=== PATIENT | male | born 1940 | race African-American/Black ===

== ENCOUNTER 2017-02-25 11:08 | Observation (INO) | payer OTHER ==
--- NOTE | 2017-02-25 11:16 | DR.GENAD ---
HPI - PCP Primary Care Physician: JOSE - HPI Comment HPI Comment: IN ED WITH PATIENT. SHE SAID HE IS BEING CONFUSE FOR SOME TIME NOW. - Complaint/Symptoms Chief Complaint Doctors Comments: AMS AND TRYING TO TURN STOVE ON AND PUSH HIS . HERE FOR MEDICAL CLEARANCE TO GO TO [facility]. NO FEVER. Chief Complaint:: EMS STATED THAT THEY WERE SENT OUT TO PICK PT. UP THAT HAS AMS. SRIKANTH WILLI WITH [facility] AT THE HOME SPEAKING WITH FAMILY. PATIENT IS BE ACCEPTED AT THE [facility]. - Nurses notes reviewed Nurses Notes Review: Yes - Source History Provided: Family Member, EMS - Mode of Arrival Mode of Arrival: EMS - Timing Onset of Chief Complaint: 02/25/17 Came on: Gradually - Duration Duration: Constant Duration: Days - Severity Severity: Moderate PMH - PMH Past Medical History: Yes Past Medical History: Arthritis, Coronary Artery Disease, Dementia, Diabetes, Dyslipidemia, Hypertension, Hypothyroidism Past Surgical History: Yes Surgical History: Bowel Resection - Family History History of Family Medical Conditions: Yes Family Medical History: Diabetes Mellitus, Coronary Artery Disease, Hypertension - Social History Does any household member use tobacco: No Alcohol Use: None Do you use any recreational Drugs:: No Lives With: Family Lives Where: Home - infectious screening In the last 2 months have you had wt loss of >10#?: NO Have you had fever, night sweats or hemotysis?: No Have you traveled outside the country in the last 6 months?: No Isolation: Standard ROS - Review of Systems Constitutional: Weakness, Fatigue, Loss of Appetite Eyes: No Symptoms Reported. negative: Eye Pain, Discharge ENTM: negative: Nose Discharge, Nose Congestion, Throat Pain Respiratoy: negative: Productive Cough, Short of Breath, Wheezing, Hemoptysis Cardiovascular: negative: Chest Pain, Edema Gastrointestinal/Abdominal: No Symptoms Reported. negative: Abdominal Pain, Nausea, Vomiting Genitourinary: Other (INCONTINENCE) Neurological: Weakness, Problems Walking Musculoskeletal: Back Pain Integumentary: No Symptoms Reported Endocrine: Decreased Appetite. negative: Flushing All Other Systems: Reviewed and Negative Unable to Obtain Due To: Altered mental status PE - Vital Signs Vitals: Temperature 98.8 F Pulse Rate 89 Respiratory Rate 20 Blood Pressure [Right Arm] 117/82 Blood Pressure [Left Arm] 144/67 Blood Pressure [Left Calf] 137/74 Blood Pressure 137/71 O2 Sat by Pulse Oximetry 99 - General Limitations: Altered Mental Status General Appearance: Alert - Head Head Exam: Normal Inspection - Eyes Eye exam: Normal Appearance - ENT ENT Exam: Normal External Ear Exam External Ear Exam: Normal External Inspection TM/Canal Exam: Bilateral Normal Nose Exam: Normal Nose Exam Mouth Exam: Normal Inspection Throat Exam: Normal Inspection - Neck Neck Exam: Trachea Midline - Respiratory Respiratory Exam: Normal Lung Sounds Bilat Respiratory Exam: Bilateral Clear to Auscultation - Cardiovascular Cardiovascular Exam: Regular Rate, Normal Rhythm, Normal Heart Sounds - Abdominal Exam Abdominal Exam: Normal Bowel Sounds, Soft. negative: Tenderness - Extremities Extremities Exam: Normal Inspection - Back Back Exam: Normal Inspection - Neurologic Neurological Exam: Alert - Skin Skin Exam: Normal Color MDM - Additional Information Additional Information Obtained From: Family - Differential Diagnosis Differential Diagnosis: MEDICAL CLEARANCE, CONFUSION, BEHAVIOURAL DISORDER, AMS Course - Treatment Treatment: SEE ORDERS. [facility] WILL HAVE BED FOR PATIENT TOMORROW. HE WILL BE HERE IN HOSPITAL FOR OBS. - Consultation Consultation Comments: DISCUSS PATIENT WITH DR. WHITE. WANT PATIENT 10 13 AND TRANFER TO [facility]. HE WILL ADMIT HIM FOR OBS TILL BED IS AVAILABLE. - Education/Counseling Education/Counseling: Patient, Family Educated On: Diagnosis ROR - Labs Reviewed Laboratory Results Reviewed?: Yes Result Diagrams: 02/25/17 11:45 02/25/17 11:45 Laboratory: WBC 2.5 X10^3/uL (3.6-10.0) L 02/25/17 11:45 RBC 4.53 X10^6/uL (4.7-6.0) L 02/25/17 11:45 Hgb 14.0 g/dL (13.5-18.0) 02/25/17 11:45 Hct 42.1 % (42.0-54.0) 02/25/17 11:45 MCV 92.9 fL (80.0-100.0) 02/25/17 11:45 MCH 30.8 pg (27.0-34.0) 02/25/17 11:45 MCHC 33.2 g/dL (33.0-35.0) 02/25/17 11:45 RDW 14.3 % (11.6-16.5) 02/25/17 11:45 Plt Count 117 X10^3/uL (150.0-450.0) L 02/25/17 11:45 MPV 8.0 fL (7.4-11.0) 02/25/17 11:45 Neut % 50.8 % (42.0-75.0) 02/25/17 11:45 Lymph % 39.3 % (21.0-51.0) 02/25/17 11:45 [place] % 9.5 % (0.0-13.0) 02/25/17 11:45 Eos % 0.1 % (0.9-2.9) L 02/25/17 11:45 Baso % 0.3 % (0.2-1.0) 02/25/17 11:45 Neut # 1.3 x10^3/uL (2.2-4.8) L 02/25/17 11:45 Lymph # 1.0 X10^3/uL (1.3-2.9) L 02/25/17 11:45 [place] # 0.2 x10^3/uL (0.3-0.8) L 02/25/17 11:45 Eos # 0.0 x10^3/uL (0.0-0.2) 02/25/17 11:45 Baso # 0.0 X10^3/uL (0.0-0.1) 02/25/17 11:45 Absolute Nucleated RBC 0.2 /100WBC 02/25/17 11:45 INR Target Range - 02/25/17 11:45 INR 1.00 (0.8-1.3) 02/25/17 11:45 PTT 33.5 SECONDS (22.9-36.5) 02/25/17 11:45 PTT Comment - 02/25/17 11:45 Sodium 148 mmol/L (136-145) H 02/25/17 11:45 Corrected Sodium 149 mmol/L (136-145) H 02/25/17 11:45 Potassium 3.7 mmol/L (3.5-5.1) 02/25/17 11:45 Chloride 108 mmol/L (98-107) H 02/25/17 11:45 Carbon Dioxide 31.0 mmol/L (21-32) 02/25/17 11:45 BUN 23 mg/dL (7-18) H 02/25/17 11:45 Creatinine 0.95 mg/dL (0.70-1.30) 02/25/17 11:45 Est GFR (MDRD) Af Amer > 60 (>60) 02/25/17 11:45 Est GFR (MDRD) Non-Af > 60 (>60) 02/25/17 11:45 Glucose 122 mg/dL (65-99) H 02/25/17 11:45 Calcium 8.5 mg/dL (8.5-10.1) 02/25/17 11:45 Corrected Calcium 9.5 mg/dL (8.5-10.1) 02/25/17 11:45 Total Bilirubin 0.70 mg/dL (0.2-1.0) 02/25/17 11:45 AST 88 Units/L (15-37) H 02/25/17 11:45 ALT 49 Units/L (12-78) 02/25/17 11:45 Alkaline Phosphatase 55 Units/L (46-116) 02/25/17 11:45 Total Protein 7.5 g/dL (6.4-8.2) 02/25/17 11:45 Albumin 2.8 g/dL (3.4-5.0) L 02/25/17 11:45 Globulin 4.7 g/dL (2.5-4.5) H 02/25/17 11:45 Albumin/Globulin Ratio 0.6 Ratio (1.1-2.1) L 02/25/17 11:45 Salicylates < 2.8 mg/dL (2.8-20) L 02/25/17 11:45 Acetaminophen < 2.0 ug/mL (10-30) L 02/25/17 11:45 Ethyl Alcohol mg/dL < 3.0 mg/dL (0-19.9) 02/25/17 11:45 - XRAY XRAY Interpreted by: Radiologist XRAY Findings: REPORT NOTED AND DISCUSS WITH PATIENT AND HIS . - EKG Rhythm: NSR (EKG NOTED) - Diagnosis Discharge Problem: Medical clearance for psychiatric admission, Confusion Mental status alteration Qualifiers: Altered mental status type: transient alteration of awareness Qualified Code(s) : R40.4 - Transient alteration of awareness - Discharge Plan Disposition: ADMITTED INPATIENT Condition: Stable - Follow ups/Referrals - Instructions
[2017-02-25 12:06] LABS: BASOPHILS % (AUTO) 0.3 % (0.2-1.0); EOSINOPHILS % (AUTO) 0.1 % (0.9-2.9); HEMATOCRIT 42.1 % (42.0-54.0); LYMPHOCYTES % (AUTO) 39.3 % (21.0-51.0); MEAN CORPUSCULAR HEMOGLOBIN 30.8 pg (27.0-34.0); MEAN CORPUSCULAR HGB CONC 33.2 g/dL (33.0-35.0); MEAN CORPUSCULAR VOLUME 92.9 fL (80.0-100.0); MONOCYTES # (AUTO) 0.2 x10^3/uL (0.3-0.8); MONOCYTES % (AUTO) 9.5 % (0.0-13.0); NEUTROPHILS # (AUTO) 1.3 x10^3/uL (2.2-4.8); NEUTROPHILS % (AUTO) 50.8 % (42.0-75.0); PLATELET COUNT 117 X10^3/uL (150.0-450.0); RED BLOOD COUNT 4.53 X10^6/uL (4.7-6.0); RED CELL DISTRIBUTION WIDTH 14.3 % (11.6-16.5); WHITE BLOOD COUNT 2.5 X10^3/uL (3.6-10.0)
[2017-02-25 12:11] LABS: ALANINE AMINOTRANSFERASE 49 Units/L (12-78); ALBUMIN 2.8 g/dL (3.4-5.0); ALKALINE PHOSPHATASE 55 Units/L (46-116); ASPARTATE AMINO TRANSFERASE 88 Units/L (15-37); BLOOD UREA NITROGEN 23 mg/dL (7-18); CALCIUM 8.5 mg/dL (8.5-10.1); CHLORIDE 108 mmol/L (98-107); COR CA(FOR HYPOALB) 9.5 mg/dL (8.5-10.1); COR NA(FOR HYPERGLY) 149 mmol/L (136-145); CREATININE 0.95 mg/dL (0.70-1.30); GLUCOSE 122 mg/dL (65-99); SODIUM 148 mmol/L (136-145); TOTAL PROTEIN 7.5 g/dL (6.4-8.2); eGFR BLACK RACES > 60 (>60); eGFR NON BLACK RACES > 60 (>60)
[2017-02-25 12:16] LABS: SALICYLATE < 2.8 mg/dL (2.8-20)
[2017-02-25 12:17] LABS: ACETAMINOPHEN < 2.0 ug/mL (10-30)
--- NOTE | 2017-02-25 12:35 | RAD ---
HISTORY: Pain Study: Portable AP chest Comparison: 01/29/2017 Findings: The trachea is midline. The cardiac silhouette is unremarkable. The lungs are clear without focal infiltrate or effusion. The bony thorax is unremarkable. IMPRESSION: Stable chest with no acute abnormality seen. Reported By:
[2017-02-25 12:49] LABS: BLOOD ALCOHOL < 3.0 mg/dL (0-19.9)
--- NOTE | 2017-02-25 14:53 | CT ---
STUDY: CT HEAD WITHOUT CONTRAST HISTORY: Altered mental status. COMPARISON: Head CT October 04, 2016. TECHNIQUE: Multiple axial images of the head were obtained from the skull base to the vertex without administration of IV contrast. Automated exposure control (AEC) was utilized to adjust the MA and/o r kV. Findings: The sulci, cisterns and ventricles are prominent consistent with diffuse volume loss. There are confluent and scattered foci of low attenuation in the periventricular and subcortical whi te matter of both hemispheres. This is a nonspecific finding which likely represents microangiopathi c change in a patient of this age. There is an old lacunar infarct in left basal ganglia. There is a low-attenuation in the occipital lobes bilaterally are more conspicuous than on the prior study. There is no evidence of acute hemorrhage, mass, mass effect or midline shift. There are no abnormal extra-axial fluid collections. There is no evidence of acute osseous abnormality or significant soft tissue swelling. IMPRESSION: 1. No evidence of acute intracranial abnormality. 2. Nonspecific white matter change and volume loss as described. 3. Old lacunar infarct in the left basal ganglia. 4. Probable old ischemic change in the occipital lobes bilaterally. Clinical correlation is recommen ded. 5. If there remains strong clinical concern for acute intracranial abnormality, then an MRI examinat ion should be considered for further evaluation. Reported By:
[2017-02-25] MEDS: NS 1000 ML 1,000 ML IV SCH (20:19)
[2017-02-25 21:37] VITALS: BMI 21.2
[2017-02-26 05:17] LABS: BASOPHILS % (AUTO) 0.5 % (0.2-1.0); EOSINOPHILS % (AUTO) 0.1 % (0.9-2.9); HEMATOCRIT 38.9 % (42.0-54.0); HEMOGLOBIN 12.7 g/dL (13.5-18.0); LYMPHOCYTES # (AUTO) 1.4 X10^3/uL (1.3-2.9); LYMPHOCYTES % (AUTO) 44.3 % (21.0-51.0); MEAN CORPUSCULAR HEMOGLOBIN 30.4 pg (27.0-34.0); MEAN CORPUSCULAR HGB CONC 32.7 g/dL (33.0-35.0); MEAN CORPUSCULAR VOLUME 92.9 fL (80.0-100.0); MEAN PLATELET VOLUME 8.4 fL (7.4-11.0); MONOCYTES # (AUTO) 0.3 x10^3/uL (0.3-0.8); MONOCYTES % (AUTO) 9.8 % (0.0-13.0); NEUTROPHILS # (AUTO) 1.5 x10^3/uL (2.2-4.8); NEUTROPHILS % (AUTO) 45.3 % (42.0-75.0); PLATELET COUNT 110 X10^3/uL (150.0-450.0); RED BLOOD COUNT 4.18 X10^6/uL (4.7-6.0); RED CELL DISTRIBUTION WIDTH 14.2 % (11.6-16.5); WHITE BLOOD COUNT 3.2 X10^3/uL (3.6-10.0)
[2017-02-26 05:42] LABS: ALANINE AMINOTRANSFERASE 41 Units/L (12-78); ALBUMIN 2.5 g/dL (3.4-5.0); ALKALINE PHOSPHATASE 53 Units/L (46-116); ASPARTATE AMINO TRANSFERASE 67 Units/L (15-37); BLOOD UREA NITROGEN 23 mg/dL (7-18); CALCIUM 8.3 mg/dL (8.5-10.1); CARBON DIOXIDE 28.3 mmol/L (21-32); CHLORIDE 110 mmol/L (98-107); COR CA(FOR HYPOALB) 9.5 mg/dL (8.5-10.1); COR NA(FOR HYPERGLY) 149 mmol/L (136-145); CREATININE 0.79 mg/dL (0.70-1.30); GLUCOSE 188 mg/dL (65-99); SODIUM 147 mmol/L (136-145); TOTAL PROTEIN 6.8 g/dL (6.4-8.2); eGFR BLACK RACES > 60 (>60); eGFR NON BLACK RACES > 60 (>60)
--- NOTE | 2017-02-26 12:45 | DR.H&P ---
H&P - History & Physical for Day of: H&P Date: 02/25/17 - Chief Complaint Chief Complaint: ALTERED MENTAL STATUS - Allergies Allergies/Adverse Reactions: Allergies Allergy/AdvReac Type Severity Reaction Status Date / Time No Known Drug Allergy Allergy Verified 01/20/17 16:11 - History of Present Illness History of Present Illness: THIS IS A 76 YEAR OLD MALE, WHO IS A PATIENT OF OURS. HE PRESENTS TO THE EMERGENCY ROOM, VIA EMS, WITH REPORTING ALTERED MENTAL STATUS. PATIENT HAS A HISTORY OF DEMENTIA, HOWEVER, IS REPORTING CONFUSION IS WORSE THAN USUAL. REPORTS PATIENT HAS BEEN PUSHING HER AND HAS BEEN COMBATIVE. SHE STATES HE HAS BEEN THROWING THINGS AT THEM AND CURSING AT THEM. FAMILY STATES PATIENT REFUSES TO EAT AND HE WILL NOT LET FAMILY CHANGE HIS ATTENDS. FAMILY REPORTS PATIENT HAS ALSO TRIED TO DRINK [employer] SPECIALIST LIKE [employer] AND [employer]. PATIENT HAS TRIED TO TOUCH THE STOVE WHILE IT WAS HOT. [facility] WAS CONTACTED AND STATED [facility] HAS BEEN FOLLOWING PATIENT AND REPORTS PATIENT HAS BEEN VERY CONFUSION, EASILY AGITATED, AND COMBATIVE THE LAST FEW DAYS. A 1013 WAS SIGNED WHILE PATIENT WAS IN ER AND ARRANGEMENTS HAD BEEN MADE FOR TRANSFER TO THE [facility] FOR FURTHER EVALUATION; HOWEVER, TRANSFER WAS DELAYED DUE TO BED AVAILABILITY. LABS WERE OBTAINED WHILE IN ER. CBC WNL EXCEPT: WBC 2.5, PLT COUNT 117. CMP WNL EXCEPT: SODIUM 148, CHL 108, BUN 23, GLUCOSE 122, AST 88, ALBUMIN 2.8. WE WILL ADMIT PATIENT FOR OBSERVATION UNTIL BED IS AVAILABLE AT [facility]. - Past Medical History Past Medical History: Anxiety, Arthritis, Coronary Artery Disease, Dementia, Diabetes, Dyslipidemia, GERD, Hypertension, Hypothyroidism Additional Medical History: Vision Deficit, Scoliosis - Past Surgical History Surgical History: Bowel Resection - Family History Family Medical History: Diabetes Mellitus, Coronary Artery Disease, Hypertension - Social History Does patient currently use any type of tobacco product: No Have you used tobacco products in the last 12 months: Yes Type of Tobacco Use: Smokeless Does any household member use tobacco: No Alcohol Use: None Drug Use: None - Medications Home Medications: Fluoxetine HCl [FLUOXETINE 20 MG *] 1 tab PO DAILY 02/26/17 [History Confirmed 02/26/17] - Review of Systems Constitutional: No Symptoms Reported Eyes: No Symptoms Reported. denies: Vision Change, Conjunctivae Inflammation, Eyelid Inflammation, Redness ENT: No Symptoms Reported. denies: Ear Pain, Ear Discharge, Nose Pain, Nose Discharge, Nose Congestion, Mouth Pain, Mouth Swelling, Throat Pain, Throat Swelling Respiratory: No Symptoms Reported. denies: Cough, Shortness of Breath, Hemoptysis, SOB with Excertion, Pleuritic Pain, Sputum, Wheezing Cardiovascular: No Symptoms Reported. denies: Chest Pain, Palpitations, Orthopnea, Edema, Light Headedness Gastrointestinal: No Symptoms Reported. denies: Nausea, Vomiting, Abdominal Pain, Diarrhea, Constipation, Melena, Hematochezia Genitourinary: No Symptoms Reported. denies: Dysuria, Frequency, Incontinence, Hematuria, Retention Musculoskeletal: No Symptoms Reported. denies: Shoulder Pain, Arm Pain, Back Pain, Hand Pain, Leg Pain, Foot Pain, Neck Pain Skin: No Symptoms Reported. denies: Rash, Lesions, Jaundice, Bruising, Wound, Ecchymosis Neurological: Weakness, Confusion. denies: Numbness, Incoordination, Change in Speech, Seizures - Physical Exam Vital Signs: Temperature 97.9 F Pulse Rate [Right Brachial] 76 Respiratory Rate 14 Blood Pressure [Right Arm] 140/74 O2 Sat by Pulse Oximetry 98 Oriented: Other (Confusion) Eyes: Normal. negative: Discharge, Redness Ear: Normal. negative: Swelling, Ecchymosis, Abrasion, Laceration Nose: Normal. negative: Injected, Discharge, Blood Throat: Normal. negative: Tonsillar Hypertrophy, Red, Exudate Respiratory: Clear Throughout Cardiovascular: Normal. negative: Murmur, Edema : Normal. negative: Dysuria, Hematuria, Frequency, Discharge, Testicular Pain Auscultation: Bowel Sounds: Decreased. negative: Bruit Palpation: Normal. negative: Spleen Enlarged, Liver Enlarged, Mass Pulsatile Tenderness: Normal. negative: Rebound, Guarding, Rigidity Skin: Normal. negative: Diaphoresis, Wound, Bruising, Ecchymosis Musculoskeletal: Normal Psychiatric: Other (Confusion) Mood Description: Calm Speech Pattern: Clear, Inappropriate - Assessment/Plan (1) Confusion Status: Acute Plan: ADMIT PATIENT, AWAIT BED AVAILABILITY AT [facility], START IV FLUIDS, MONITOR. (2) Mental status alteration Qualifiers: Altered mental status type: transient alteration of awareness Coma depth: C Coma timing: C Qualified Code(s): R40.4 - Transient alteration of awareness Status: Acute Plan: ABOVE. (3) Medical clearance for psychiatric admission Status: Acute Plan: ABOVE. (4) Vascular dementia Qualifiers: Dementia behavioral disturbance: with behavioral disturbance Qualified Code (s): F01.51 - Vascular dementia with behavioral disturbance Status: Chronic (5) CAD (coronary artery disease) Qualifiers: Coronary Disease-Associated Artery/Lesion type: [place] artery [place] vs. transplanted heart: [place] heart Associated angina: without angina Qualified Code(s): I25.10 - Atherosclerotic heart disease of [place] coronary artery without angina pectoris Status: Chronic (6) Diabetes Qualifiers: Diabetes mellitus type: type 2 Diabetes mellitus complication status: without complication Diabetes mellitus complication detail: D Diabetic retinopathy severity: D Proliferative retinopathy type: P Diabetes mellitus macular edema: D Diabetes mellitus care home insulin use: with care home use Laterality: L Chronic kidney disease stage: C Qualified Code(s): E11.9 - Type 2 diabetes mellitus without complications; Z79.4 - intermediate (current) use of insulin Status: Chronic (7) Essential hypertension Status: Chronic (8) GERD (gastroesophageal reflux disease) Qualifiers: Esophagitis presence: esophagitis presence not specified Qualified Code(s) : K21.9 - Gastro-esophageal reflux disease without esophagitis Status: Chronic (9) Hyperlipidemia Qualifiers: Hyperlipidemia type: mixed hyperlipidemia Qualified Code(s): E78.2 - Mixed hyperlipidemia Status: Chronic (10) Anxiety Status: Chronic
[2017-02-26] MEDS: NS 1000 ML 1,000 ML IV SCH ×3 (13:16→21:48)
[2017-02-26] MEDS: PROZAC PO SCH (13:16)
[2017-02-26] MEDS: CARDIZEM CD 240 MG PO SCH (13:16)
[2017-02-26] MEDS: COLACE CAP 100 MG PO SCH ×2 (13:16→20:36)
--- NOTE | 2017-02-26 14:06 | PCM.PROG ---
Progress Note - Progress Note for Day of Date: 02/26/17 - Subjective Subjective: PATIENT RESTS IN BED, EATING BREAKFAST. HE IS PLEASANTLY CONFUSED THIS MORNING AND HAS BEEN COOPERATIVE WITH TREATMENT. HOME MEDICATIONS WILL BE RESTARTED TODAY. NO FAMILY AT BEDSIDE THIS MORNING. PATIENT HAS A GOOD APPETITE. PATIENT WAS AWAITING PLACEMENT WITH [facility]; HOWEVER, PATIENT IS VERY PLEASANT AND COOPERATIVE TODAY. CASE MANAGEMENT HAS FOUND PLACEMENT WITH [facility]. FAMILY IS IN AGREEMENT. CBC WNL EXCEPT : WBC 3.2, H/H 12.7/38.9, PLT COUNT 110. CMP WNL EXCEPT: SODIUM 147, CHL 110, BUN 23, GLUCOSE 188, CALCIUM 8.3, ALBUMIN 2.5. WE WILL CONTINUE IV FLUIDS, CONTINUE HOME MEDICATIONS, AND MONITOR. WE WILL PLAN FOR DISCHARGE TO [facility] IN AM, PROVIDING PATIENT IS STABLE. - Past Medical Family Social History Past Med/Fam/Surg Hx: No changes since H&P Allergies: Allergies No Known Drug Allergy Allergy (Verified 01/20/17 16:11) - Review of Systems ROS: No change since H&P - Vital Signs and I&O's Vital Signs: Temperature 97.6 F Pulse Rate [Right Brachial] 59 Respiratory Rate 15 Blood Pressure [Right Arm] 114/77 O2 Sat by Pulse Oximetry 98 Intake and Output: Intake & Output 02/24/17 02/25/17 02/26/17 02/27/17 11:59 11:59 11:59 11:59 Intake Total 419 Balance 419 - Physical Exam Oriented: Other (Confusion) Eyes: Normal. negative: Discharge, Redness Ear: Normal. negative: Swelling, Ecchymosis, Abrasion, Laceration Nose: Normal. negative: Injected, Discharge, Blood Throat: Normal. negative: Tonsillar Hypertrophy, Red, Exudate Respiratory: Normal Cardiovascular: Normal. negative: Murmur, Edema : Normal. negative: Dysuria, Hematuria, Frequency, Discharge, Testicular Pain Auscultation: Bowel Sounds: Normal. negative: Bruit Palpation: Normal. negative: Spleen Enlarged, Liver Enlarged, Mass Pulsatile Tenderness: Normal. negative: Rebound, Guarding, Rigidity Skin: Normal. negative: Diaphoresis, Wound, Bruising, Ecchymosis Musculoskeletal: Normal Psychiatric: Other (Confusion) Mood Description: Calm Affect: Normal Speech Pattern: Clear, Inappropriate - Laboratory and Diagnostics Result Diagrams: 02/26/17 04:35 02/26/17 04:35 Labs: Laboratory WBC 3.2 X10^3/uL (3.6-10.0) L 02/26/17 04:35 RBC 4.18 X10^6/uL (4.7-6.0) L 02/26/17 04:35 Hgb 12.7 g/dL (13.5-18.0) L 02/26/17 04:35 Hct 38.9 % (42.0-54.0) L 02/26/17 04:35 MCV 92.9 fL (80.0-100.0) 02/26/17 04:35 MCH 30.4 pg (27.0-34.0) 02/26/17 04:35 MCHC 32.7 g/dL (33.0-35.0) L 02/26/17 04:35 RDW 14.2 % (11.6-16.5) 02/26/17 04:35 Plt Count 110 X10^3/uL (150.0-450.0) L 02/26/17 04:35 MPV 8.4 fL (7.4-11.0) 02/26/17 04:35 Neut % 45.3 % (42.0-75.0) 02/26/17 04:35 Lymph % 44.3 % (21.0-51.0) 02/26/17 04:35 [place] % 9.8 % (0.0-13.0) 02/26/17 04:35 Eos % 0.1 % (0.9-2.9) L 02/26/17 04:35 Baso % 0.5 % (0.2-1.0) 02/26/17 04:35 Neut # 1.5 x10^3/uL (2.2-4.8) L 02/26/17 04:35 Lymph # 1.4 X10^3/uL (1.3-2.9) 02/26/17 04:35 [place] # 0.3 x10^3/uL (0.3-0.8) 02/26/17 04:35 Eos # 0.0 x10^3/uL (0.0-0.2) 02/26/17 04:35 Baso # 0.0 X10^3/uL (0.0-0.1) 02/26/17 04:35 Absolute Nucleated RBC 0.1 /100WBC 02/26/17 04:35 INR Target Range - 02/25/17 11:45 INR 1.00 (0.8-1.3) 02/25/17 11:45 PTT 33.5 SECONDS (22.9-36.5) 02/25/17 11:45 PTT Comment - 02/25/17 11:45 Sodium 147 mmol/L (136-145) H 02/26/17 04:35 Corrected Sodium 149 mmol/L (136-145) H 02/26/17 04:35 Potassium 3.7 mmol/L (3.5-5.1) 02/26/17 04:35 Chloride 110 mmol/L (98-107) H 02/26/17 04:35 Carbon Dioxide 28.3 mmol/L (21-32) 02/26/17 04:35 BUN 23 mg/dL (7-18) H 02/26/17 04:35 Creatinine 0.79 mg/dL (0.70-1.30) 02/26/17 04:35 Est GFR (MDRD) Af Amer > 60 (>60) 02/26/17 04:35 Est GFR (MDRD) Non-Af > 60 (>60) 02/26/17 04:35 Glucose 188 mg/dL (65-99) H 02/26/17 04:35 Calcium 8.3 mg/dL (8.5-10.1) L 02/26/17 04:35 Corrected Calcium 9.5 mg/dL (8.5-10.1) 02/26/17 04:35 Total Bilirubin 0.50 mg/dL (0.2-1.0) 02/26/17 04:35 AST 67 Units/L (15-37) H 02/26/17 04:35 ALT 41 Units/L (12-78) 02/26/17 04:35 Alkaline Phosphatase 53 Units/L (46-116) 02/26/17 04:35 Total Protein 6.8 g/dL (6.4-8.2) 02/26/17 04:35 Albumin 2.5 g/dL (3.4-5.0) L 02/26/17 04:35 Globulin 4.3 g/dL (2.5-4.5) 02/26/17 04:35 Albumin/Globulin Ratio 0.6 Ratio (1.1-2.1) L 02/26/17 04:35 Salicylates < 2.8 mg/dL (2.8-20) L 02/25/17 11:45 Acetaminophen < 2.0 ug/mL (10-30) L 02/25/17 11:45 Ethyl Alcohol mg/dL < 3.0 mg/dL (0-19.9) 02/25/17 11:45 - Plan (1) Confusion Status: Acute Plan: CONTINUE IV FLUIDS, MONITOR. PRISON PLACEMENT SET FOR TOMORROW. (2) Mental status alteration Status: Acute Qualifiers: Altered mental status type: transient alteration of awareness Coma depth: C Coma timing: C Qualified Code(s): R40.4 - Transient alteration of awareness Plan: ABOVE. (3) Vascular dementia Status: Chronic Qualifiers: Dementia behavioral disturbance: with behavioral disturbance Qualified Code (s): F01.51 - Vascular dementia with behavioral disturbance (4) CAD (coronary artery disease) Status: Chronic Qualifiers: Coronary Disease-Associated Artery/Lesion type: [place] artery [place] vs. transplanted heart: [place] heart Associated angina: without angina Qualified Code(s): I25.10 - Atherosclerotic heart disease of [place] coronary artery without angina pectoris (5) Diabetes Status: Chronic Qualifiers: Diabetes mellitus type: type 2 Diabetes mellitus complication status: without complication Diabetes mellitus complication detail: D Diabetic retinopathy severity: D Proliferative retinopathy type: P Diabetes mellitus macular edema: D Diabetes mellitus alf insulin use: with alf use Laterality: L Chronic kidney disease stage: C Qualified Code(s): E11.9 - Type 2 diabetes mellitus without complications; Z79.4 - detention (current) use of insulin (6) Essential hypertension Status: Chronic (7) GERD (gastroesophageal reflux disease) Status: Chronic Qualifiers: Esophagitis presence: esophagitis presence not specified Qualified Code(s) : K21.9 - Gastro-esophageal reflux disease without esophagitis (8) Hyperlipidemia Status: Chronic Qualifiers: Hyperlipidemia type: mixed hyperlipidemia Qualified Code(s): E78.2 - Mixed hyperlipidemia (9) Anxiety Status: Chronic
[2017-02-26] MEDS ORDERED: MIRALAX POWDER (1 DOSE 17GM) PO SCH (21:00)
[2017-02-26] MEDS: HUMULIN R SUBCUT PRN (21:29)
[2017-02-27 05:59] LABS: BASOPHILS % (AUTO) 0.3 % (0.2-1.0); EOSINOPHILS % (AUTO) 0.4 % (0.9-2.9); HEMATOCRIT 38.7 % (42.0-54.0); HEMOGLOBIN 12.9 g/dL (13.5-18.0); LYMPHOCYTES # (AUTO) 1.6 X10^3/uL (1.3-2.9); MEAN CORPUSCULAR HEMOGLOBIN 30.6 pg (27.0-34.0); MEAN CORPUSCULAR HGB CONC 33.3 g/dL (33.0-35.0); MEAN CORPUSCULAR VOLUME 92.1 fL (80.0-100.0); MEAN PLATELET VOLUME 8.7 fL (7.4-11.0); MONOCYTES # (AUTO) 0.4 x10^3/uL (0.3-0.8); NEUTROPHILS # (AUTO) 1.8 x10^3/uL (2.2-4.8); NEUTROPHILS % (AUTO) 48.3 % (42.0-75.0); PLATELET COUNT 129 X10^3/uL (150.0-450.0); RED BLOOD COUNT 4.21 X10^6/uL (4.7-6.0); WHITE BLOOD COUNT 3.8 X10^3/uL (3.6-10.0)
[2017-02-27 06:19] LABS: ALANINE AMINOTRANSFERASE 34 Units/L (12-78); ALBUMIN 2.5 g/dL (3.4-5.0); ALKALINE PHOSPHATASE 55 Units/L (46-116); ASPARTATE AMINO TRANSFERASE 59 Units/L (15-37); BLOOD UREA NITROGEN 16 mg/dL (7-18); CARBON DIOXIDE 28.4 mmol/L (21-32); CHLORIDE 109 mmol/L (98-107); COR CA(FOR HYPOALB) 9.2 mg/dL (8.5-10.1); CREATININE 0.66 mg/dL (0.70-1.30); GLUCOSE 89 mg/dL (65-99); SODIUM 145 mmol/L (136-145); TOTAL PROTEIN 6.9 g/dL (6.4-8.2); eGFR BLACK RACES > 60 (>60); eGFR NON BLACK RACES > 60 (>60)
[2017-02-27] MEDS ORDERED: SYNTHROID 125 mcg TAB PO SCH (07:00)
[2017-02-27] MEDS ORDERED: LANTUS SC SCH (09:00)
[2017-02-27] MEDS: PROZAC PO SCH (09:47)
[2017-02-27] MEDS: COLACE CAP 100 MG PO SCH (09:47)
[2017-02-27] MEDS: CARDIZEM CD 240 MG PO SCH (09:47)
[2017-02-27] MEDS: HUMULIN R SUBCUT PRN (12:46)
[2017-02-27 18:58] VITALS: BP 113/59
[2017-02-27] MEDS ORDERED: SNACK - Diabetic Appropriate PO SCH (20:00)
== END 2017-02-27 18:00 | disposition home health service (06) ==
LOC: ER 11:28 → ICU 19:53
PROVIDERS: ADMIT Internal Medicine; ATTEND Internal Medicine
DX: R40.4 Transient alteration of awareness (principal); D72.818 Other decreased white blood cell count; D64.89 Other specified anemias; E87.0 Hyperosmolality and hypernatremia; R94.4 Abnormal results of kidney function studies; E10.65 Type 1 diabetes mellitus with hyperglycemia; E78.2 Mixed hyperlipidemia; I10 Essential (primary) hypertension; E03.8 Other specified hypothyroidism; M13.89 Other specified arthritis, multiple sites; I25.10 Atherosclerotic heart disease of native coronary artery without angina pectoris; R62.7 Adult failure to thrive; R94.31 Abnormal electrocardiogram [ECG] [EKG]; F01.51 Vascular dementia, unspecified severity, with behavioral disturbance; Z79.4 Long term (current) use of insulin; K21.9 Gastro-esophageal reflux disease without esophagitis; F41.8 Other specified anxiety disorders; Z00.8 Encounter for other general examination
CPT/HCPCS: 36415; 70450; 71010; 80053; 80307; 80320; 85025; 85610; 85730; 93005; 93010; 96365; 96367; 99284; A4222; G0378; G6038; G6039; G6040; J1815